=== PATIENT | female | born 1950 | race Caucasian/White ===

== ENCOUNTER → 2025-02-17 12:48 | Outpatient (REF) | payer MEDICARE, SELFPAY ==
[2025-02-17 13:20] LABS: Hematocrit 36.7 % (37.0-47.0); Hemoglobin 11.2 g/dL (12.0-16.0); Mean Corp Hgb Conc. 30.5 g/dL (33.0-37.0); Mean Corpuscular Volume 95.6 fL (81.0-99.0); Nucleated Red Blood Cells % 0 %; Platelet Count 268 10^3/uL (130-400); Red Cell Dist. Width 15.6 % (11.5-14.5)
[2025-02-17 13:28] LABS: INR 1.68; PT 20.3 Sec (11.4-14.6)
[2025-02-17 13:36] LABS: AST (SGOT) 29 U/L (14-36); Albumin 4.5 g/dl (3.5-5.0); Alkaline Phosphatase 82 U/L (38-126); Blood Urea Nitrogen 22 mg/dl (7-17); Calcium 9.8 mg/dl (8.4-10.2); Carbon Dioxide 23 mmol/L (22-30); Chloride 112 mmol/L (98-107); Glucose 99 mg/dl (70-99); Magnesium 1.9 mg/dl (1.6-2.3); Potassium 4.7 mmol/L (3.5-5.1); Sodium 142 mmol/L (135-145); Total Protein 7.4 g/dl (6.3-8.2); eGFR 58.02
[2025-02-17 13:45] LABS: ALT (SGPT) 22 U/L (0-35)
== END ==
LOC: SDSPAT 12:48
PROVIDERS: ATTENDING PHYSICIAN Internal Medicine Cardiovascular Disease; FAMILY PHYSICIAN Family Medicine; OTHER PHYSICIAN Internal Medicine Cardiovascular Disease
DX: I48.91 Unspecified atrial fibrillation (principal)
CPT/HCPCS: 36415; 75572; 80053; 83735; 85025; 85610; 86850; 86900; 86901; 93005; Q9967

== ENCOUNTER → 2025-02-26 06:36 | Day surgery (SDC) | payer MEDICARE, SELFPAY | LOC: CATH 06:36 | PROVIDERS: ATTENDING PHYSICIAN Internal Medicine Cardiovascular Disease; FAMILY PHYSICIAN Family Medicine; REFERRING PHYSICIAN Internal Medicine Cardiovascular Disease | DX: I48.19 Other persistent atrial fibrillation (principal); E78.5 Hyperlipidemia, unspecified; I25.10 Atherosclerotic heart disease of native coronary artery without angina pectoris; Z90.49 Acquired absence of other specified parts of digestive tract; Z95.5 Presence of coronary angioplasty implant and graft; Z79.01 Long term (current) use of anticoagulants; Z79.82 Long term (current) use of aspirin; Z79.899 Other long term (current) drug therapy; I08.3 Combined rheumatic disorders of mitral, aortic and tricuspid valves; I70.0 Atherosclerosis of aorta | CPT/HCPCS: 93312; 93320; 93325; 71045 ==

== ENCOUNTER 2025-03-02 05:58 | Day surgery (SDC) | payer MEDICARE, SELFPAY ==
[2025-02-17 13:15] VITALS: BMI 25.1
--- NOTE | 2025-02-18 12:40 | W.PN.UPDATE ---
Update Note
Progress Note Update
Chest CT:
8 mm low-attenuation filling defect along the nondependent margin of the left atrial appendage, rounded configuration, suspicious for thrombus.
7 mm pulmonary nodule in the superior segment of the right lower lobe. Recommend follow-up in 6-12 months.
--faxed to PCP and LM for patient and provider
[2025-03-02] VITALS (15 sets, daily range): BP systolic 97–125; BP diastolic 60–89; BMI 25.3
[2025-03-02 08:39] LABS: ACT-LR - POC 326 Seconds (116-155)
[2025-03-02 08:54] LABS: ACT-LR - POC 266 Seconds (116-155)
--- NOTE | 2025-03-02 09:07 | ITS.CL.ABL ---
Deburrer Strip - Ablation
Ablation
Procedure Report:
ELECTROPHYSIOLOGY ABLATION STUDY
DATE:: March 02, 2025
INDICATION: Persistent supraventricular tachycardia in the form of atrial fibrillation. As above
HISTORY: See H and P. As above
ANTIARRHYTHMIC DRUG: Amiodarone
PRE-PROCEDURE MARINO: No intracardiac thrombus
PRESENTING RHYTHM: Atrial fibrillation
'TIME-OUT': called and confirmed.
SEDATION/ANESTHESIA: provided via the anesthesia department using general anesthesia (LMA).
INTRAVENOUS/ARTERIAL ACCESS:
Right femoral venous -8Fr
Left femoral venous - 8 Fr, 6 Fr
Ultrasound guidance for bilateral femoral vein access was utilized by me to obtain access with demonstration of normal anatomy
[id number] suture was placed bilateral femoral venous access sites
PROCEDURE:
1. A decapolar CS catheter was placed within the CS for mapping and pacing. This was also used as the reference catheter for the 3-D map.
2. The intracardiac ultrasound catheter was positioned in the RA to identify the FO for targeting of transseptal puncture, assist in identification of the pulmonary vein ostia, monitoring pre and post ablation pulmonary vein flow velocities,
monitoring for 'bubble' formation during RF application as a sign of thermal injury, and to monitor for pericardial effusion during mapping and ablation procedure. Left atrial size, LV ejection fraction, and pulmonary vein flows were monitored
pre and post ablation procedure. The other valves were inspected and found to be free of significant regurgitation or stenosis.
3. Half of the calculated heparin bolus was administered prior to the first transeptal puncture. Transseptal puncture was performed to diagnose RA and LA pressure so that safety of LA mapping and ablation could be further assessed, and to access
the left atrium and pulmonary veins for mapping and ablation. This entailed advancing an 16.8 Syrian sheath, RF wire with dilator into the superior vena cava and withdrawing both (monitoring intracardiac ultrasound, fluoroscopy and tip pressure)
with the tip oriented toward the atrial septum. The fossa ovalis was engaged (indicated by sudden displacement of the sheath tip as well as tenting of the fossa seen on intracardiac ultrasound). Left atrial access required a pass with the
Brockenbrough needle extended. Left atrial catheter position was confirmed by pressure monitoring (RA mean pressure 4 mm Hg and LA mean presure 6 mm Hg), LA saturation (99%), demonstrating low left-sided filling pressures as well as fluoroscopy.
The sheath was advanced over the dilator and positioned in the left atrium. This procedure was repeated for the Agilis sheath. The remainder of the calculated heparin bolus was administered and heparin was
infused to maintain ACT at 300 -350 seconds throughout the case.
4. RA pacing was performed via the proximal decapolar poles and LA pacing was performed via the distal decapolr poles.
5. A quadrapolar catheter was first positioned at the His position for His Bundle recording which was tagged via the 3-D Navex sytem, and then passed to the RVA for RV pacing and recording.
6. The Penta spline catheter and grid catheter were placed in each of the 5 pulmonary veins including an anomalous right middle pulmonary vein.
7. Next, a 3-D map was created using Navex. A 3-D reconstructed CT image was compared to the 3-D Navex map to assist in anatomic interpretation, mapping and ablation. The CT image and the NavX image were fused.
8. A total of 52 lesions were given with all of in basket poses to each of the 5 pulmonary veins in the right middle pulmonary vein addressed in flower pose. The roof posterior wall and floor the left atrium were addressed in flower pose. Atrial
fibrillation persisted beyond pulmonary vein isolation so extrapulmonary vein substrate including LA roof, LA posterior wall, and LA floor were ablated. Atrial fibrillation persisted and the patient was converted to sinus rhythm with 120 J
synchronized biphasic shock. Entrance and exit block was then confirmed in all 5 pulmonary veins as well as the roof posterior wall floor of the left atrium. EP study post cardioversion demonstrated no other nonpulmonary vein triggers for
arrhythmia nor supraventricular mechanisms for arrhythmia.
9. Normal sinus node and AV node function were noted. There was a short 1.8-second pause post cardioversion.
TOTAL FLOURO TIME: 12.1 minutes 123 mGy
TOTAL RF DURATION: 0 minutes
REVERSAL OF HEPARIN: 35 mg of protamine, slow IV administration
COMPLICATIONS:
None
Intracardiac US shows no pericardial effusion post ablation.
SUMMARY:
Complex left atrial mapping and ablation.
Isolation of all 5 pulmonary veins as above and an additional AF substrate including LA roof, posterior wall and floor of the left atrium.
RECOMMENDATIONS:
1. Admit to monitored bed.
2. Resume anticoagulation
3. Discontinue amiodarone in 1 month
4. Anticipate discharge on March 03
Copy to: William Clifton
--- NOTE | 2025-03-02 09:44 | PTCARENOTE ---
Pt rec'd from EP lab. Pt drowsy but oriented and following simple commands. Pt aware of person, place and time. Assessment as charted. ECG completed.
--- NOTE | 2025-03-02 09:49 | PTCARENOTE ---
Pt's RA sat 99%. Pt resting comfortably, pt denies pain.
[2025-03-02] MEDS: PROTONIX PO (10:52)
[2025-03-02] MEDS: TENORMIN PO ×3 (10:52→22:02)
[2025-03-02] MEDS: ANESTHETIC LOZENGE 1 LOZENGE PO (11:00)
--- NOTE | 2025-03-02 11:23 | PTCARENOTE ---
Report called to CALVIN Deshpande, IVU. Will transfer pt when room is ready.
--- NOTE | 2025-03-02 11:39 | PTCARENOTE ---
Pt denies the need to void at this time. Pt voided prior to procedure at 0730. Pt bladder scanned for 115 ml @ this time. Will continue to monitor closely.
--- NOTE | 2025-03-02 12:45 | TRANSFER ---
Pt transferred to IVU via stretcher, pt on investment specialist with RN at bedside. Hand of groin checks completed.
--- NOTE | 2025-03-02 12:55 | PTCARENOTE ---
Rec'd pt from micro lab analyst. Tele- SB. HR 50s. B/l groin sites are c/d/i with figure 8 sutures intact. No bleeding/hematoma noted. Activity restrictions reviewed w/ pt and verbalizes understanding. Pt has no complaints at this time. Currently in bed;
call dorita w/in reach.
--- NOTE | 2025-03-02 14:34 | CM ---
Reviewed chart. Met with Miss Hernandez to review discharge plans. She states prior to admission she resides alone in a first floor apartment with five steps to enter. She states prior to admission she was independent with ambulation and adls. She
states she currently is not using any DME. She states she fractured her knee cap while she was in [facility]. She states she has a prescription plan and uses [facility]. The discharge plan is to return home when medically stable.
[2025-03-02] MEDS: CRESTOR 40 MG PO (17:47)
[2025-03-02] MEDS: ZETIA 10 MG PO (17:47)
[2025-03-02] MEDS: TYLENOL 650 MG PO (19:56)
[2025-03-02] MEDS: ELIQUIS 5 MG PO (19:56)
[2025-03-03 03:49] VITALS: BP 121/66
[2025-03-03 04:34] LABS: Hematocrit 32.7 % (37.0-47.0); Hemoglobin 10.0 g/dL (12.0-16.0); Mean Corp Hgb Conc. 30.6 g/dL (33.0-37.0); Mean Corpuscular Volume 95.9 fL (81.0-99.0); Platelet Count 247 10^3/uL (130-400); Red Cell Dist. Width 16.4 % (11.5-14.5)
[2025-03-03 04:55] LABS: Blood Urea Nitrogen 30 mg/dl (7-17); Calcium 9.4 mg/dl (8.4-10.2); Carbon Dioxide 23 mmol/L (22-30); Chloride 110 mmol/L (98-107); Estimated Creatinine Clearance 32 ml/min; Glucose 150 mg/dl (70-99); Potassium 5.7 mmol/L (3.5-5.1); Sodium 140 mmol/L (135-145); eGFR 46.62
[2025-03-03 05:19] VITALS: BMI 25.4
[2025-03-03] MEDS: LOKELMA 5 GRAM PO (05:54)
--- NOTE | 2025-03-03 06:27 | PTCARENOTE ---
Pt SB on monitor with HR mid 50s. Atenolol held per GEOLOGY TECHNICIAN for low HR. Pt denies any pain or discomfort. ambulates independently in the room
[2025-03-03 08:32] VITALS: BP 111/65
[2025-03-03] MEDS: ELIQUIS 5 MG PO (08:47)
[2025-03-03] MEDS: PROTONIX 20 MG PO (08:48)
[2025-03-03] MEDS: PACERONE 200 MG PO (08:48)
[2025-03-03] MEDS: TENORMIN 25 MG PO (08:48)
[2025-03-03] MEDS: LOW STRENGTH ASPIRIN 81 MG PO (08:48)
--- NOTE | 2025-03-03 09:13 | W.PN.CARDCBS ---
Addendum entered and electronically signed by William Clifton MD 03/03/25 11:26:
patient seen and examined
agree with VP PRODUCT MARKETING note and plan
agree with VP [employer]ODUCT MARKET[employer] examination
exam:
tele sr
aao x 3
non focal neurologically
abd soft
groins cdi no hematoma or oozing
75 y/o, presents with symptomatic AFib, failed multiple cardioversions, amiodarone. [id number]=1, maintained on eliquis. Pre-procedure CT chest with RLL nodules and possible CRISTIANO thrombus, therefore MARINO performed last week. No thrombus and EF
60-65%, however complicated by marked desaturation requiring bag ventilation. Post CXR w/pulmonary edema. She is now fully recovered and presented for PFA. Post procedure she is stable without issues, oob ambulating and groin sites stable. No oxygen
requirements or pulmonary issues post anesthesia.
IMPRESSION:
PAF
s/p PFA, 03/02/25
RLL nodules
CAD w/prior RCA PCI (2017), LAD & LCx PCI (2015)
Remote SAH s/p fall, no neurological deficits
HLD
HTN
GERD
PLAN:
Tele- SB 50s w/short burst AT
Bilat groin sites stable
OOB ambulating
resume eliquis last evening
continue amiodarone for 30 days post procedure then stop
HR with bradycardia- will decrease atenolol back to 25mg BID as before
To follow with pulm re: pulm nodules
followup with Dr. Baxter as scheduled
home today
Original Note:
Today's Communication / Plan
-
resume eliquis
amio for 30 days post op then stop
decrease atenolol for bradycardia
home today
Impression / Plan
-
PCP: Emperatriz Benito MD
CDY: Austin Baxter MD
75 y/o, presents with symptomatic AFib, failed multiple cardioversions, amiodarone. [id number]=3, maintained on eliquis. Pre-procedure CT chest with RLL nodules and possible CRISTIANO thrombus, therefore MARINO performed last week. No thrombus and EF
60-65%, however complicated by marked desaturation requiring bag ventilation. Post CXR w/pulmonary edema. She is now fully recovered and presented for PFA. Post procedure she is stable without issues, oob ambulating and groin sites stable. No oxygen
requirements or pulmonary issues post anesthesia.
IMPRESSION:
PAF
s/p PFA, 03/02/25
RLL nodules
CAD w/prior RCA PCI (2016), LAD & LCx PCI (2014)
Remote SAH s/p fall, no neurological deficits
HLD
HTN
GERD
PLAN:
Tele- SB 50s w/short burst AT
Bilat groin sites stable
OOB ambulating
resume eliquis last evening
continue amiodarone for 30 days post procedure then stop
HR with bradycardia- will decrease atenolol back to 25mg BID as before
To follow with pulm re: pulm nodules
followup with Dr. Baxter as scheduled
home today
Progress Note - Faith Doctor
Subjective
Date of Service: March 03, 2025
Denies cp/palps/dyspnea
oob ambulating
groin sites without pain
Objective
Labs:
03/03/25 03:59
03/03/25 03:59
Labs
Hgb 10.0 g/dL (12.0-16.0) L 03/03/25 03:59
Hct 32.7 % (37.0-47.0) L 03/03/25 03:59
Plt Count 247 10^3/uL (130-400) 03/03/25 03:59
Sodium 140 mmol/L (135-145) 03/03/25 03:59
Potassium 5.7 mmol/L (3.5-5.1) H 03/03/25 03:59
BUN 30 mg/dl (7-17) H 03/03/25 03:59
Creatinine 1.2 mg/dL (0.6-1.0) H 03/03/25 03:59
Glucose 150 mg/dl (70-99) H 03/03/25 03:59
Vital Signs and I&O:
Vital Signs
Temp Pulse Resp BP Pulse Ox
98.8 F 56 16 111/65 95
03/03/25 08:31 03/03/25 08:45 03/03/25 08:31 03/03/25 08:32 03/03/25 08:32
Vital Signs
Temp Pulse Resp BP Pulse Ox
98.8 F 56 16 111/65 95
03/03/25 08:31 03/03/25 08:45 03/03/25 08:31 03/03/25 08:32 03/03/25 08:32
Intake & Output
03/01/25 03/02/25 03/03/25 03/04/25
06:59 06:59 06:59 06:59
Intake Total 700 / 700
Balance 700 / 700
Physical Exam
Physical Exam
AAOx3, MAEE 5/5
RRR S1 S2 no murmurs
CTA bilat, non labored
soft abd, + bs
bilat groin sites without ht/bleeding, non tender
bilat extremities w/palpable distal pulses, no edema
--- NOTE | 2025-03-03 09:25 | W.DS.TRANS ---
DC Summary - Area Counselor
-
Discharge Instructions:
Sleep Apnea Risk Intermediate
Discharge Diagnosis/Procedures AFib, s/p ablation
Diet Low Cholesterol
Driving Restrictions No driving for 24 hours
Instructions:
Stand-Alone Forms: DC Instructions- Cath/EP Lab
Changes to Home Medications: Yes
Discharge Medications:
DC Medications w/original date entered in [employer]
amiodarone 200 mg tablet 200 mg PO DAILY 02/15/25
apixaban 5 mg tablet (Eliquis) 5 mg PO BID 02/15/25
aspirin 81 mg tablet 81 mg PO DAILY 02/15/25
diphenhydramine HCl 25 mg capsule (Benadryl) 25 mg PO HS PRN Insmonia 02/15/25
ezetimibe 10 mg tablet (Zetia) 10 mg PO QPM 02/15/25
omeprazole 20 mg capsule,delayed release 20 mg PO DAILY 02/15/25
rosuvastatin 40 mg tablet (Crestor) 40 mg PO QPM 02/15/25
atenolol 25 mg tablet 25 mg PO BID #0 tabs 03/03/25
Home Medication Changes
DECREASE DOSE: atenolol
Pending Results: No
[2025-03-03 11:20] VITALS: BP 132/76
--- NOTE | 2025-03-03 11:33 | PTCARENOTE ---
IV and tele removed. Discharge instructions reviewed w/ pt and verbalizes understanding. Belongings collected and sent home w/ pt. Escorted via WC and staff assist to home.
== END 2025-03-03 11:33 | disposition home or self-care (01) ==
LOC: CATH 05:58
PROVIDERS: Nurse Practitioner; ATTENDING PHYSICIAN Internal Medicine Cardiovascular Disease; FAMILY PHYSICIAN Family Medicine; OTHER PHYSICIAN Internal Medicine Cardiovascular Disease
DX: I48.19 Other persistent atrial fibrillation (principal); I10 Essential (primary) hypertension; E78.5 Hyperlipidemia, unspecified; I25.10 Atherosclerotic heart disease of native coronary artery without angina pectoris; I47.10 Supraventricular tachycardia, unspecified; I49.8 Other specified cardiac arrhythmias; J81.1 Chronic pulmonary edema; K21.9 Gastro-esophageal reflux disease without esophagitis; Z79.01 Long term (current) use of anticoagulants; Z79.82 Long term (current) use of aspirin; Z79.899 Other long term (current) drug therapy; Z86.79 Personal history of other diseases of the circulatory system; Z90.49 Acquired absence of other specified parts of digestive tract; Z95.5 Presence of coronary angioplasty implant and graft
CPT/HCPCS: C1732; C1894; C1733; C1730; C1892; C1766; C1759; C1769; 80048; 85027; 85347; 86900; 86901; 93005; 93656; 93657